=== PATIENT | female | born 2000 | race African-American/Black ===

== ENCOUNTER 2021-04-27 18:34 | Emergency (ER) | payer OTHER ==
[~2021-04-27] VITALS: Ht 157.5 cm; Wt 45.4 kg
[2021-04-27] MEDS ORDERED: LORAZEPAM 0.5 MG TABLET PO ONE (18:45)
[2021-04-27] MEDS ORDERED: LORAZEPAM 1 MG TABLET ONE (18:58)
--- NOTE | 2021-04-27 19:15 | NUR ---
Recieved report from [facility] Issa for continuity of care.
--- NOTE | 2021-04-27 19:38 | NUR ---
Pt reports she had a seizure earlier today. Pt. takes keppra twice daily, cannot remember if she took her morning does. Pt. 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 Her last seizure was in 2019. Pt vs currently stable, will continue to monitor.
[2021-04-27] MEDS ORDERED: levETIRAcetam 250 MG TABLET PO ONE ×2 (19:45→20:00)
[2021-04-27] MEDS ORDERED: levETIRAcetam 250 MG TABLET ONE ×2 (19:48→20:00)
[2021-04-27] MEDS ORDERED: OXCARBAZEPINE 150 MG TABLET PO ONE (20:00)
--- NOTE | 2021-04-27 20:00 | NUR ---
Pt taken to ct scan
[2021-04-27] MEDS ORDERED: OXCARBAZEPINE 150 MG TABLET ONE (20:01)
--- NOTE | 2021-04-27 20:12 | NUR ---
Pt returned from ct. Seizure precautions in place.
--- NOTE | 2021-04-27 21:00 | NUR ---
Patient discharged to home in stable condition. Written and verbal after care instructions given. Patient verbalizes understanding of instructions. Stressed follow up or return to ER for worsening s/s. Pt. a&ox4, walks with steady gait, and denies any symptoms. Pts friend is driving her home. All belongings went with pt.
[2021-04-27 21:02] VITALS: BP 120/72
== END 2021-04-27 21:04 | disposition home or self-care (01) ==
LOC: ER 18:34
DX: G40.909 Epilepsy, unspecified, not intractable, without status epilepticus (principal); Z87.74 Personal history of (corrected) congenital malformations of heart and circulatory system; R45.1 Restlessness and agitation; Z79.899 Other long term (current) drug therapy
CPT/HCPCS: 70450; A4663